=== PATIENT | female | born 1975 | race Caucasian/White ===

== ENCOUNTER 2020-08-20 15:32 | Outpatient (REF) | payer OTHER, SELFPAY ==
[2020-08-20 16:14] LABS: COVID-19 Test Negative (Negative)
== END 2020-08-20 15:33 | disposition home or self-care (01) ==
LOC: HO.LAB 15:32
PROVIDERS: Visit Provider Internal Medicine
DX: Z20.828 Contact with and (suspected) exposure to other viral communicable diseases (principal)
CPT/HCPCS: 87635; C9803

== ENCOUNTER 2020-11-10 11:56 | Emergency (ER) | payer OTHER, SELFPAY ==
--- NOTE | 2020-11-10 12:20 | XR_ITS ---
EXAMINATION: XR CHEST CLINICAL INFORMATION: Cough and fever COMPARISON: None TECHNIQUE: Frontal view of the chest was obtained. FINDINGS: No significant abnormality is noted involving the heart, lungs, mediastinum, bony thorax or soft tissues. XR/XR chest 1V IMPRESSION: Unremarkable chest examination.
[2020-11-10 12:44] VITALS: BP 125/93; PULSE 93; RESP 20; TEMP 37; O2SAT 98; BMI 29.0
--- NOTE | 2020-11-10 14:14 | ED.URI ---
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 MD elicited complaint: cough and nasal congestion Description of mucous: clear Treatments prior to arrival: none Related Data Allergies Allergy/AdvReac Type Severity Reaction Status Date / Time No Known Allergies Allergy Verified 11/10/20 12:20 Review of Systems Review of Systems: Constitutional: No Weight loss, No Fever, No Chills, No Night Sweats, No Fatigue, No Malaise ENT/Mouth: No Hearing loss, No Ear Pain, + Nasal Congestion, No Sinus Pain, No Hoarseness, No sore throat, + Rhinorrhea, No Swallowing Difficulty Eyes: No Eye Pain, No Swelling, No Redness, No Foreign Body, No Discharge, No Vision Changes Cardiovascular: No Chest Pain, No SOB, No Dyspnea on Exertion, No Orthopnea, No Edema, No Palpitations Respiratory: No Cough, No Sputum, No Wheezing, No Smoke Exposure, No Dyspnea Gastrointestinal: No Nausea, No Vomiting, No Diarrhea, No Constipation, No abdominal Pain, No Hematochezia, No Melena Genitourinary: Negative Musculoskeletal: No joint pain, No Myalgias, No Joint Swelling Skin: No Skin Lesions, No rash Neuro: No Weakness, No Numbness, No Paresthesias, No Loss of Consciousness, No Dizziness, No Headache Psych: Negative Heme/Lymph: No Bruising, No Bleeding,No Lymphadenopathy Endocrine: No Polyuria, No Polydipsia, No Temperature Intolerance Yes all other systems are reviewed and are negative [facility] Social History Social History Advance Directives: No Advance Directives Information Provided: No Physical Exam Vital Signs: Vital Signs: Last Vital Signs Temp 98.6 F 11/10/20 12:44 Pulse 93 11/10/20 12:44 Resp 20 11/10/20 12:44 BP 125/93 H 11/10/20 12:44 Pulse Ox 98 11/10/20 12:44 Body Mass Index 29.0 Reviewed Const: General: cooperative and healthy appearing Nutritional Appearance: average body habitus Orientation/consciousness: patient oriented x3 HENMT: Head: Yes normal to inspection Ears: hearing grossly normal bilaterally Eyes: General: appearance normal, both eyes and all related structures Visual Alvarez: normal visual alvarez by confrontation Resp: Effort & Inspection: normal respiratory effort Auscultation: clear to auscultation bilaterally Cardio: Jugular venous distension: no JVD Rhythm: regular rhythm Heart sounds: S1 normal heart sound present and S2 normal heart sound present GI: Inspection: Yes normal to inspection Percussion: Yes normal to percussion Auscultation: normal bowel sounds : General: Yes no CVA tenderness Back/Spine/Pelvis: Back: no CVA tenderness Skin: General skin exam: no rashes or lesions noted Neuro: General: patient oriented x3 Extrem: General: Yes normal to inspection MDM - URI/Sore Throat Lab Data Labs: Lab Results 11/10/20 Range/Units 12:52 Coronavirus (PCR) POSITIVE A (Negative) Influenza Type A (PCR) NEGATIVE (Negative) Influenza Type B (PCR) NEGATIVE (Negative) RSV RNA Qual (PCR) NEGATIVE (Negative) Discharge Plan Discharge Clinical Impression: Upper respiratory infection, COVID-19 Patient Disposition: Home, Self-Care Instructions: COVID-19 (Coronavirus Disease 2019) (ED) Additional Instructions: Self-quarantine Isolation Social distancing Supportive care discussed Follow-up with employee health center for full guidance on return to work policy Return if any concerns or worsening symptoms otherwise follow-up as instructed Thank you Referrals: [facility] [Provider Group] - 2 days
[2020-11-10 14:35] LABS: Influenza A PCR NEGATIVE (Negative); Influenza B PCR NEGATIVE (Negative); Resp Syncy Virus RNA Qual PCR NEGATIVE (Negative)
[2020-11-10 14:36] LABS: SARS COV2 PCR INHOUSE POSITIVE (Negative)
[2020-11-10 15:33] VITALS: BP 136/99; PULSE 109; RESP 20; TEMP 37.2; O2SAT 96
== END 2020-11-10 15:35 | disposition home or self-care (01) ==
PROVIDERS: Nurse Practitioner Primary Care; Emergency Provider Emergency Medicine; PCP Family Medicine
DX: U07.1 COVID-19 (principal)
CPT/HCPCS: 0241U; 36415; 71045; 99283

== ENCOUNTER 2022-09-25 09:31 | Outpatient (REF) | payer OTHER, SELFPAY ==
--- NOTE | ~2022-09-25 | MM_ITS ---
EXAMINATION: MM SCREENING DIGITAL BREAST TOMOSYNTHESIS, BILATERAL CLINICAL INFORMATION: Screening. Asymptomatic. The lifetime risk of breast cancer based on the Tyrer-Cuzick Model is 20.8%. COMPARISON: Mammography: October 01, 2020 and September 28, 2018 TECHNIQUE: Digital breast tomosynthesis is performed in both the craniocaudal and mediolateral oblique views along with computer-aided detection (CAD). Synthesized 2D images are generated from the tomosynthesis. FINDINGS: There are scattered areas of fibroglandular density (ACR BI-RADS breast composition Category b). There are no significant masses, abnormal calcifications, or other abnormalities. MM/MM tomosynthesis screening BI IMPRESSION: No significant changes ASSESSMENT: BI-RADS 1: Negative RECOMMENDATION: Routine annual mammography screening. This patient's information was entered into a reminder system with a target due date for their next mammogram.
== END 2022-09-25 09:32 | disposition home or self-care (01) ==
LOC: HO.MAMMO 09:31
PROVIDERS: PCP Family Medicine; Visit Provider Family Medicine
DX: Z12.31 Encounter for screening mammogram for malignant neoplasm of breast (principal)
CPT/HCPCS: 77063; 77067

== ENCOUNTER → 2022-12-03 08:24 | Outpatient (BNVA) | payer OTHER, SELFPAY | PROVIDERS: PCP Family Medicine; Visit Provider Student in an Organized Health Care Education/Training Program | DX: Z13.89 Encounter for screening for other disorder (principal) ==

== ENCOUNTER 2022-12-03 09:56 | Outpatient (REF) | payer OTHER, SELFPAY ==
[2022-12-03 10:18] LABS: MANUAL DIFF FLAG NO
[2022-12-03 10:53] LABS: Basophils Percent Auto 0.4 % (0-2); Eosinophils Percent Auto 0.4 % (0-4); Hematocrit 47.3 % (37.0-47.0); Hemoglobin 15.6 g/dl (12.0-16.0); Lymphocytes Absolute Auto 1.4 X10*3/uL (1.2-4.9); Lymphocytes Percent Auto 28.3 % (20-40); Mean Corpuscular Hemoglobin 29.2 pg (27.0-33.0); Mean Corpuscular Volume 88.6 fL (80.0-98.0); Mean Platelet Volume 9.6 fL (9.4-12.3); Monocytes Absolute Auto 0.2 X10*3/uL (0.1-1.2); Monocytes Percent Auto 4.1 % (2-11); Neutrophils Absolute Auto 3.4 x10*3/uL (2.0-8.3); Neutrophils Percent Auto 66.8 % (45-73); Platelet Count 317 X10*3/uL (160-400); Red Blood Count 5.34 X10*6/uL (4.20-5.50); Red Cell Distribution Width 12.4 % (11.0-16.0); White Blood Count 5.1 X10*3/uL (4.8-10.8)
[2022-12-03 10:54] LABS: Appearance Urine Cloudy; Color Urine Yellow; Glucose Urine UA Negative (Negative); Leukocyte Esterase Urine Trace (Negative); Nitrite Urine Negative (Negative); Specific Gravity - Urine 1.025 (1.005-1.025); UMIC TRIGGER UA YES; Urine Blood Negative (Negative); Urine Ketones Negative (Negative); Urine Protein Negative (Neg-Trace)
[2022-12-03 10:56] LABS: Bacteria Urine 2+ (None Seen); Hyaline Casts Urine 0-2 /LPF (0-2); RBC Urine 0-2 /HPF (0-2); Squamous Epithelial Cell Urine >20 /HPF (0-2); WBC Urine 0-5 /HPF (0-5)
[2022-12-03 11:35] LABS: Erythrocyte Sedimentation Rate 3 MM/HR (0-20)
[2022-12-03 11:51] LABS: Alanine Aminotransferase 15 U/L (0-31); Albumin Level 4.6 g/dL (3.5-5.0); Alkaline Phosphatase 51 U/L (39-117); Anion Gap 12 (12-20); Aspartate Amino Transferase 13 U/L (5-31); Bilirubin Total 0.6 mg/dL (0.0-1.0); Blood Urea Nitrogen 15 mg/dL (9-16); C Reactive Protein < 0.10 mg/dL (< or = 0.50); Calcium 9.6 mg/dL (8.4-10.2); Carbon Dioxide 27 mmol/L (22-29); Chloride 108 mmol/L (96-108); Estimated Glomerular Filt Rate > 60; Glucose Random 88 mg/dL (60-115); Potassium 4.4 mmol/L (3.3-5.1); Sodium 143 mmol/L (135-145); Total Protein 7.5 g/dL (6.5-8.0)
[2022-12-03 11:57] LABS: Protein/Creatinine Ratio, Ur 0.05 (<0.2); Total Protein Urine Random 12 mg/dL (<12)
[2022-12-05 13:08] LABS: Anti DNA DS Antibody <1 IU/mL; Antibody to SS-A Antigen <1.0 NEG AI (<1.0 NEG); Antibody to SS-B Antigen <1.0 NEG AI (<1.0 NEG); SM/Ribonucleoprotein Ab <1.0 NEG AI (<1.0 NEG); Smith Protein <1.0 NEG AI (<1.0 NEG)
[2022-12-05 22:04] LABS: Prot Elec - Albumin 4.7 g/dL (3.8-4.8); Prot Elec - Alpha1 0.3 g/dL (0.2-0.3); Prot Elec - Alpha2 0.9 g/dL (0.5-0.9); Prot Elec - Beta 1 0.4 g/dL (0.4-0.6); Prot Elec - Beta 2 0.3 g/dL (0.2-0.5); Prot Elec - Total Protein 7.5 g/dL (6.1-8.1)
[2022-12-06 06:34] LABS: Complement C3 137 mg/dL (83-193)
[2022-12-06 22:34] LABS: PTT (LAC) Screen 29 sec (<=40)
[2022-12-08 02:48] LABS: Angiotensin Converting Enzyme 17 U/L (9-67)
[2022-12-08 09:19] LABS: IgA 208 mg/dL (47-310); IgG 969 mg/dL (600-1640); IgM 168 mg/dL (50-300)
[2022-12-08 18:49] LABS: Lysozyme, Serum 5.6 mcg/mL (5.0-11.0)
[2022-12-09 13:58] LABS: DNAds, Crithidia Antibody Negative (Negative)
== END 2022-12-03 09:57 | disposition home or self-care (01) ==
LOC: HO.10HDL 09:56
PROVIDERS: Visit Provider Student in an Organized Health Care Education/Training Program
DX: M32.9 Systemic lupus erythematosus, unspecified (principal); D86.9 Sarcoidosis, unspecified; R76.0 Raised antibody titer
CPT/HCPCS: 36415; 80053; 81001; 82164; 82784; 83516; 84156; 84165; 85025; 85549; 85597; 85613; 85652; 85730; 86140; 86160; 86225; 86235; 86255; 86334

== ENCOUNTER → 2023-01-21 08:10 | Outpatient (BNVA) | payer OTHER, SELFPAY | PROVIDERS: PCP Family Medicine; Visit Provider Student in an Organized Health Care Education/Training Program | DX: Z13.89 Encounter for screening for other disorder (principal) ==

== ENCOUNTER 2023-02-17 10:30 | Outpatient (RCR) | payer OTHER, SELFPAY ==
--- NOTE | 2023-03-27 14:34 | MHC.OT.DC ---
[address] [phone] F: [phone] Occupational Therapy Discharge Note Patient Name: Smita Pham Provider: Steve Torres Diagnosis: Osteoarthritis bilateral hands Date of Surgery: Date of Evaluation: 02/10/23 Date of Discharge: 03/27/23 Treatments to Date: 3 Cancellations to Date: 1 No Shows to Date: 1 Discharge Status: Patient Elected to Stop Discharge Summary: Con't high pain. Weak with index abd . Good tolerance submax isometric ex Electronically Signed By: Ny Costa OT CHT CLT Reviewed/agree with student documentation: Therapist: Please Sign and return to therapist, thank you for your referral.
== END 2023-03-27 14:35 | disposition home or self-care (01) ==
LOC: HO.OT 10:30
PROVIDERS: PCP Family Medicine; Visit Provider Student in an Organized Health Care Education/Training Program
DX: M19.041 Primary osteoarthritis, right hand (principal); M19.042 Primary osteoarthritis, left hand
CPT/HCPCS: 29125; 97035; 97110; 97166; 97760

== ENCOUNTER 2023-10-13 10:39 | Outpatient (REF) | payer OTHER, SELFPAY ==
--- NOTE | ~2023-10-13 | MM_ITS ---
EXAMINATION: MM SCREENING DIGITAL BREAST TOMOSYNTHESIS, BILATERAL CLINICAL INFORMATION: Screening. Asymptomatic. COMPARISON: Mammography: 09/25/2022, 10/01/2020, 09/28/2018. TECHNIQUE: Digital breast tomosynthesis is performed in both the craniocaudal and mediolateral oblique views along with computer-aided detection (CAD). Synthesized 2D images are generated from the tomosynthesis. FINDINGS: There are scattered areas of fibroglandular density (ACR BI-RADS breast composition Category b). There are no suspicious masses, suspicious grouped calcifications, or areas of architectural distortion in either breast. The parenchymal pattern is stable from prior exams. No skin or axillary abnormalities. MM/MM tomosynthesis screening BI IMPRESSION: No mammographic evidence of malignancy. ASSESSMENT: BI-RADS BI-RADS 1 - Negative RECOMMENDATION: Routine annual mammography screening. 1 year F/U This examination should not preclude the clinical evaluation of a suspicious palpable abnormality. This patient's information was entered into a reminder system with a target due date for their next mammogram.
== END 2023-10-13 10:40 | disposition home or self-care (01) ==
LOC: HO.MAMMO 10:39
PROVIDERS: PCP Family Medicine; Visit Provider Family Medicine
DX: Z12.31 Encounter for screening mammogram for malignant neoplasm of breast (principal)
CPT/HCPCS: 77063; 77067

== ENCOUNTER → 2023-10-13 10:45 | Outpatient (BNV) | payer OTHER, SELFPAY | PROVIDERS: PCP Family Medicine; Visit Provider Radiology Diagnostic Radiology | DX: Z12.31 Encounter for screening mammogram for malignant neoplasm of breast (principal) | CPT/HCPCS: 77063; 77067 ==

== ENCOUNTER 2024-11-04 08:46 | Outpatient (REF) | payer OTHER, SELFPAY ==
--- OUTSIDE RECORDS SUMMARY | 2024-11-04 09:04 | XMS_ITS | Data Portability ---
Author Organization [facility], , [facility] Address [address] [place] [address] Care Team Providers Care Deli Worker Name Role Phone JANE LEAVITT Primary Care Provide r ZEINAB WALSH Operation Shift Supervisor SKYLER CASTILLO Hematology/Oncology Assessment No assessment recorded. Plan of Treatment Reminders Order Date Submit Date Provider Last Modified By Organization Details Last Modified Time Details Appointments None record ed. Lab lipid panel, serum 2022 024 [facility], [address] [place] [address], [id number], 4 16:20:27 lipid panel, serum 2023 [facility] [address] [place] [address], [id number], 4 14:24:59 Referral None record ed. Procedures None record ed. Surgeries None record ed. Imaging MAMMO, screen ing, tomosy nthesi s, bilate ral - 2nd look consul t/Diag Mammo/ US Breast /Guide d Asp/Br east Bx as clinic oniel nava. 2022 023 [facility] (Imaging), [address], [place], [address], 4 11:59:54 MAMMO, screen ing, tomosy nthesi s, bilate ral - By jewel morejon this order, I approv e and author jayleen the reflex orderi ng of additi onal breast imagin g based on the radiol ogist' s clinic al judgme nt. [email or web address] [place] [address] ([facility]), [address] [place] [address], [address], 4 14:08:55 Medication Orders mupiro ariadne 2 % topica l ointme nt 2022 023 [facility] [address] [place], [address], 3 09:31:44 Incass ia 0.35 mg tablet 2022 023 [facility] [address] [place], [address], 3 09:32:59 benzon atate 200 mg capsul e 2023 024 [facility] [address] [place], [address], 4 08:34:40 codein e 10 mg-gua ifenes in 100 mg/5 mL oral liquid 2023 024 [facility] [address] [place], [address], 4 08:34:44 Incass ia 0.35 mg tablet 2023 024 [facility] [address] [place], [address], 4 09:06:57 Patient TargetsNo targets recorded. Patient Instructions Encounter Date Encounter Id Patient Instructions Last Modified By Organization Details Last Modified Time 09/10/2023 [id number] well visit, women 50 to 65: care instructions sandra Not available 09/10/2023 09:31:16 After a discussion of treatment and medication options, which included consideration of the best practices in medicine, a medical plan was provided. The patient's opinions and concerns were included in this treatment plan and goal. * Maintain 1200 mg of calcium from food sources daily, * Take vitamin D 2835-3228 units daily to help absorption of calcium into your bones * Use sunblock consistently * Review the website: [email or web address].KonTEM to get more information on the Mediterranean diet - a heart healthy eating plan * Immunizations up to date; COVID vaccine booster recommended. Please get your Shingrix at the pharmacy. * The current guidelines from the [place] [employer] is moderate aerobic physical activity about 30 minutes for 5 days of the week. Walking at a moderately fast pace, as tolerated. Try to build muscle mass. This will help maintain bone strength and support your joints. * Pap smear is due 2024 * Normal cytology and negative HPV in 2019 * Mammogram guidelines discussed, no family history or personal history of abnormal mammograms, prefers yearly - [facility] scheduled Oct 2023; normal in 2021 * Colonoscopy is due 2031 Normal in year 2021 * Health care proxy discussed and no changes. * Wellness Visit in 1 year * See your dentist at least twice a year. * Get your vision checked at least once every 2 years. * Discussed labs - 2021 LDL improving, will recheck in 2023 prior to Wellness. Goal is less than 130. Continue mediterranean diet and avoid saturated fat. * saw rheumatology in January 2023 - reassuring, no follow up needed. * trial of mupirocin for rash on nose and will let me know how it is in 1-2 weeks. * vertigo, rare about 1-3 times a year and resolved with meclizine sandra Not available 09/12/2023 10:09:22 10/19/2023 [id number] After a discussion of treatment and medication options, which included consideration of the best practices in medicine, a medical plan was provided. The patient's opinions and concerns were included in this treatment plan and goal. New medication was discussed with patient including risks, benefits ,possible and expected side effects. Patient understands and is willing to begin medication as prescribed. * try saline gargles, saline nasal spray or neti pot; acetaminophen as needed for fever or pain, increase fluids, rest, avoid sick contacts, frequent hand washing. * trial of prilosec OTC also, a silent heartburn can cause a dry persistent cough. * has nubia ventura to use as needed and robitussin with codeine at bedtime. * call in the interim if with worsening symptoms or intolerance to medication. sandra Not available 10/20/2023 14:54:39 Reason for Referral None Reported. Results Created Date Observation Date Name Description Value Unit Range Abnormal Flag Note LastModifiedBy Organization Detail LastModifiedTime 07/17/2007/21/2023 BACTE RIAL VAGIN OSIS/ VAGIN ITIS bv, RNA BV NEG negati ve normal The aptim a BV assay is utili zed for the detec tion of ribos omal RNA from bacte robin assoi cated with bacte rial vagin osis( BV), inclu ding Lacto bacil lis (L. gasse ri, L. crisp stus, and L. jense cyndi), Gardn erell a vagin isaias, and Atopo bium vagin ae. The assay repor ts a quali tativ e resul t for BV and does not repor t resul ts for indiv idual organ isms. Not Available [address], [address], 07/21/2023 13:52:57 07/17/2007/21/2023 BACTE RIAL VAGIN OSIS/ VAGIN ITIS silvia species group (C. albicans, C. tropicalis, C. parapsilosis ), RNA C. SPP POS negati ve abnormal Not Available [address], [address], 07/21/2023 13:52:57 07/17/2007/21/2023 BACTE RIAL VAGIN OSIS/ VAGIN ITIS silvia glabrata, RNA C. GLA NEG negati ve normal Not Available [address], [address], 07/21/2023 13:52:57 07/17/2007/21/2023 BACTE RIAL VAGIN OSIS/ VAGIN ITIS trichomonas vaginalis, RNA TRICH NEG negati ve normal Not Available [address], [address], 07/21/2023 13:52:57 09/06/20 24 09/07/2024 LIPID PANEL cholesterol 236 mg/dL <200 mg/dl Dre able 200-2 39 mg/dl Borde rline High >240 mg/dl High Not Available [address], [address], 09/07/2024 16:20:27 09/06/20 24 09/07/2024 LIPID PANEL triglyceride s 78 mg/dL <150 mg/dL Katia l 150-1 99 mg/dL Borde rline High 200-4 99 mg/dL High >500 mg/dL Very High Not Available [address], [address], 09/07/2024 16:20:27 09/06/20 24 09/07/2024 LIPID PANEL direct HDL 79 mg/dL <40 mg/dl - Major Risk for CHD >60 mg/dl - Negat nia Risk for CHD Not Available [address], [address], 09/07/2024 16:20:27 09/06/20 24 09/07/2024 GLUCO SE glucose 87 mg/dL 70-100 Not Available [address], [address], 09/07/2024 16:20:28 09/06/20 24 09/07/2024 LDL - CALCU LATED LDL - calculated 141 RISK CATEG ORY LDL GOAL _ CHD or CHD Risk Equiv alent s <100 mg/dl (10-y ear risk >20%) 2+ Risk Facto rs <130 mg/dl (10-y ear risk <= 20%) 0-1 Risk Facto r??? <160 mg/dl ??? Almos t all peopl e with 0-1 risk facto r have a 10 year risk <10%, thus 10 year risk asses ment in peopl e with 0-1 risk facto r is not neces andre. Not Available [address], [address], 09/07/2024 16:20:28 11/03/19 24 10/13/2023 MAMMO , kaleb elizabeth No observ ation record ed. [facility] [address] [place], [address], 11/03/2023 10:35:40 Result Notes None recorded. Problems Name Problem SNOMED Code Status Onset Date Resolution Date Notes Provider Name and Address Organization Details Recorded Time Abdominal pain 69533023 Active Jane Isaac MD [address] [place] [address], [phone] , [facility] 5 13:40:22 COVID-19 101481132 Active 202011/10/2020 [facility] Jane Isaac MD [address] [place] [address], [phone] , [facility] 1 09:28:23 Impacted cerumen of bilateral ears 57335222658 [address] Active 2020 Kym Ferrer MA [facility] 1 11:03:11 Headache 80212355 Active 2007 Not Available [facility] 3 03:13:40 Mixed hyperlipi demia 102060856 Active 200512/12/14 NO STANDING ORDER FOR LIPID PER KL--lz Enid Fletcher [facility] 5 11:27:18 Astigmati sm 79303330 Active 2007 Not Available [facility] 3 03:13:40 Low back pain 202436694 Active 2005 Not Available [facility] 3 03:13:40 Problem Notes None recorded. Procedures Surgical History Date Name Laterality Status Provider Name and Address Organization Details Recorded Time 2023 Refraction completed Tresa Jacobsen OD [address] [place] [address], [phone], [facility] 02/08/2024 11:11:29 2021 Lilliana - Colonoscopy completed Jenaro Tijerina MD [address] [place], [address], [facility] 03/27/2022 12:28:13 2021 Colonoscopy completed Jane Isaac MD [address] [place], [address], [facility] 04/06/2022 16:06:53 2021 Refraction completed Tresa Jacobsen, OD [address] [place], [address], [facility] 12/26/2021 10:08:02 2020 Cerumen Removal - Irrigation/Lavage completed Kym Ferrer [facility] 09/02/2021 11:29:41 2019 prevention-cardiovascu lar risk reduction counseling [facility] 08/31/2020 07:35:44 2019 prevention-annual alcohol misuse screening [facility] 08/31/2020 07:35:44 2019 Refraction completed Tresa Jacobsen, OD [address] [place], [address], [facility] 12/08/2019 15:24:57 2018 Refraction completed Inez Garcia [facility] 12/16/2018 10:30:38 2016 POC Flu Testing completed Yelena Alba [facility] 11/17/2016 12:04:27 2015 Refraction completed Inez Garcia [facility] 08/19/2016 10:54:02 2014 Esophagoduodenoscopy completed Jane Isaac MD [address] [place], [address], [facility] 12/14/2014 20:30:10 Imaging Results Imaging Date Name Status LastModified by Organiz ation Details LastModified Time 10/13/2023 MAMMO, screening completed [email or web address] [facility] [address] [place], [address], 11/03/2023 10:35:40 Procedure Notes None recorded. Medical Equipment None Reported. Allergies Allergen ID Allergen Name Allergen Category Reaction Reaction Severity Criticality Documentation Date Start Date Code Code System Note Provider Name and Address Organization Details Recorded Time Naprosyn medicatio n nausea vomiting Not available Not available Not available 01/10/2010 2 RxNorm Not Available [facility] 1 06:05:20 Medications Name Sig Start Date Stop Date Status Note LastModified by Organization Details LastModified Time amoxicill in 500 mg capsule TAKE ONE CAPSULE BY MOUTH 4 TIMES A DAY UNTIL FINISHED 09/10 completed Finished course 08/31/20 20 LZ Not Available Not Available Not Available fluconazo le 150 mg tablet Take 1 tablet every day by oral route for 1 day. 09/10 completed Not Available Not Available Not Available benzonata te 200 mg capsule TAKE 1 CAPSULE BY MOUTH THREE TIMES A DAY FOR 10 DAYS 09/13 completed Not Available Not Available Not Available hydrocodo ne 5 mg-acetam inophen 325 mg tablet Take 1 tablet every 8 hours by oral route as needed for 7 days. 02/06 completed Not Available Not Available Not Available clindamyc in HCl 150 mg capsule TAKE 1 TABLET EVERY 6 HOURS UNTIL TABLETS ARE GONE active Not Available Not Available No t Available meclizine 12.5 mg tablet 1-2 tabs po as needed TID 2023 active Not Available Not Available Not Avai lable metronida zole 500 mg tablet TAKE 1 TABLET BY MOUTH TWICE A DAY FOR 7 DAYS 09/02 completed Not Available Not Available Not Available acetamino phen 300 mg-codein e 30 mg tablet TAKE 1 TABLET BY MOUTH EVERY 6 HOURS NEEDED FOR PAIN active Not Available Not Available No t Available ciproflox acin 250 mg tablet Take 1 tablet every 12 hours by oral route for 7 days. 06/29 completed Not Available Not Available Not Available tramadol 50 mg tablet 02/06 completed Not Available Not Available Not Available terconazo le 80 mg vaginal supposito ry INSERT 1 SUPPOSIT ORY VAGINALL Y EVERY DAY FOR 3 DAYS 09/10 completed Not Available Not Available Not Available methocarb elisabeth 750 mg tablet 02/06 completed Not Available Not Available Not Available antipyrin e-benzoca ine 5.4 %-1.4 % ear drops PUT ENOUGH DROPS TO FILL EAR CANAL INTO AFFECTED EAR(S) 3 TIMES A DAY active Not Available Not Available No t Available benzonata te 100 mg capsule Take 1 capsule 3 times a day by oral route for 5 days. 11/27 completed not taking ds Not Available Not Available Not Available oseltamiv ir 75 mg capsule TAKE ONE CAPSULE BY MOUTH TWICE A DAY FOR 5 DAYS 01/05 completed Not Available Not Available Not Available hyoscyami ne 0.125 mg sublingua l tablet DISSOLVE 1 TABLET BY MOUTH 3 TIMES A DAY NEEDED FOR AB PAIN active Not Available Not Available No t Available polymyxin B sulfate 10,000 unit-trim ethoprim 1 mg/mL eye drops PLACE 1 DROP INTO THE AFFECTED EYE(S) 4 TIMES A DAY FOR 7 DAYS THEN STOP 08/04 completed Not Available Not Available Not Available omeprazol e 20 mg capsule,d elayed release Take 1 capsule every day by oral route as needed for 90 days. active Not Available Not Available No t Available codeine 10 mg-guaife nesin 100 mg/5 mL oral liquid TAKE 10 ML BY MOUTH DAILY AT BEDTIME NEEDED 09/13 completed Not Available Not Available Not Available mupirocin 2 % topical ointment APPLY BY TOPICAL ROUTE. TWICE A DAY ON AFFECTED AREA. active Not Available Not Available No t Available methylpre dnisolone 4 mg tablets in a dose pack 01/13 completed Not Available Not Available Not Available fluticaso ne propionat e 50 mcg/actua tion nasal spray,paul pension SPRAY 1 SPRAY INTO EACH NOSTRIL EVERY DAY 09/02 completed Not Available Not Available Not Available naproxen 500 mg tablet 2007 active Take 1.00 tabs twice daily as needed Not Available Not Available Not Available Bactroban Nasal 2 % ointment Take by nasal route. on affected area twice a day on nose as needed. 2012 active Not Available Not Available Not Avai lable amoxicill in 875 mg-potass ium clavulana te 125 mg tablet TAKE 1 TABLET BY MOUTH EVERY 12 HOURS FOR 1 WEEK 09/10 completed Not Available Not Available Not Available Vitamin D3 25 mcg (1,000 unit) capsule Take by oral route. active Not Available Not Available No t Available Vitamin C 09/02 completed Not Available Not Available Not Available Probiotic take1.00 tab daily active does not take regularl y Not Available Not Available Not Available Multi Vitamin take 1.00 tab daily active Not Available Not Available No t Available Vitamin B12 active 1000 mg Not Available Not Available Not Available Larissia 0.1 mg-20 mcg tablet TAKE 1 TABLET BY MOUTH EVERY DAY active Not Available Not Available No t Available Incassia 0.35 mg tablet TAKE 1 TABLET BY MOUTH EVERY DAY active Not Available Not Available No t Available Vitals Date Recorded Body height Provider Name an d Address Organization Details Last Updated DateTime 07/13/2023 167.64 cm [facility] 14:01:55 Date Recorded Oxygen saturation Oxygen saturation in Arterial blood by Pulse oximetry Provider Name and Address Organization Details Last Updated DateTime 07/13/2023 99 % 99 % [facility]13[facility]2023 14:02:16 Date Recorded Heart rate Provider Name an d Address Organization Details Last Updated DateTime 07/13/2023 96 /[facility] 14:02:36 Date Recorded Body mass index (BMI) Body weight Provider Name and Address Organization Details Last Updated DateTime 07/13/2023 24.7 kg/m2 54008.63 g [facility]2023 14:04:04 Date Recorded Body temperature Provider Name a nd Address Organization Details Last Updated DateTime 07/13/2023 97.8 [degF] [facility]13[facility]2023 14:04:59 Date Recorded Body height Provider Name an d Address Organization Details Last Updated DateTime 09/10/2023 167.64 cm Sabina Stout MA [facility] 09/10/2023 09:04:04 Date Recorded Body mass index (BMI) Body weight Provider Name and Address Organization Details Last Updated DateTime 09/10/2023 25.7 kg/m2 42619.89 g Sabina Stosz, [facility] 09/10/2023 09:05:34 Date Recorded Heart rate Provider Name an d Address Organization Details Last Updated DateTime 09/10/2023 72 /min Sabina Stout [facility] 09/10/2023 09:06:06 Date Recorded Body height Provider Name an d Address Organization Details Last Updated DateTime 10/19/[address] [facility] 10/19/2023 13:31:20 Date Recorded Body temperature Provider Name a nd Address Organization Details Last Updated DateTime 10/19/2023 98.2 [degF] Dominique Person [facility] 10/19/2023 13:35:05 Date Recorded Oxygen saturation Oxygen saturation in Arterial blood by Pulse oximetry Provider Name and Address Organization Details Last Updated DateTime 10/19/2023 99 % 99 % Dominique Person [facility] 10/19/2023 13:36:19 Date Recorded Heart rate Provider Name an d Address Organization Details Last Updated DateTime 10/19/2023 105 /min Dominique Person [facility] 10/19/2023 13:36:45 Date Recorded Body height Provider Name an d Address Organization Details Last Updated DateTime 09/13/2024 167.64 cm Sabina Stout [facility] 09/13/2024 08:35:20 Date Recorded Body mass index (BMI) Body weight Provider Name and Address Organization Details Last Updated DateTime 09/13/2024 27 kg/m2 01117.93 g Sabina Stout [facility] 09/13/2024 08:36:06 Date Recorded Heart rate Provider Name an d Address Organization Details Last Updated DateTime 09/13/2024 72 /min Sabina Stout [facility] 09/13/2024 08:37:35 Date Recorded Systolic blood pressure Diastolic blood pressure Provider Name and Address Organization Details Last Updated DateTime 07/13/2023 104 mm[Hg] 74 mm[Hg] Alicia Renee [facility] 07/13/2023 14:04:14 Date Recorded Systolic blood pressure Diastolic blood pressure Provider Name and Address Organization Details Last Updated DateTime 09/10/2023 112 mm[Hg] 64 mm[Hg] Sabina Stout MA [facility] 09/10/2023 09:05:41 Date Recorded Systolic blood pressure Diastolic blood pressure Provider Name and Address Organization Details Last Updated DateTime 10/19/2023 124 mm[Hg] 72 mm[Hg] Dominique Person CMA [facility] 10/19/2023 13:36:23 Date Recorded Systolic blood pressure Diastolic blood pressure Provider Name and Address Organization Details Last Updated DateTime 09/13/2024 110 mm[Hg] 78 mm[Hg] Sabina Stout MA [facility] 09/13/2024 08:37:04 Social History Question Answer Notes LastModified by Organizat ion Details LastModified Time Tobacco Smoking Status Never Smoker Not Available [facility] 08/28/2011 04:54:19 What Is Your Level Of Alcohol Consumption? Occasional Maybe 2 Glasses Of Wine Per Month [email or web address] Information not available 08/30/2019 Do You Wear A Helmet When Biking? No Does Not Ride A Bike Information not available 08/13/2017 What Is Your Level Of Caffeine Consumption? Occasional 1 Cup Coffee Daily Information not available 07/26/2015 How Much Tobacco Do You Chew? None Information not available 08/13/2017 What Type Of Diet Are You Following? REGULAR Trying To Eat Healthier [email or web address] Information not available 08/30/2019 Which Illicit Or Recreational Drugs Have You Used? None Information not available 07/26/2015 Do You Or Have You Ever Used E-cigarettes Or Vape? 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 0 Information not available 07/22/2013 Are There Any Guns Present In Your Home? No Information not available 07/26/2015 Live Alone Or With Others? With Others Mom Information not available 08/13/2017 Does The Patient Have Difficulty Speaking [place]? No [email or web address] Information not available 12/19/2013 Does The Patient Have Difficulty Reading [place]? No Information not available 07/26/2015 Patient Has Health Care Proxy Signed And In Chart Yes [email or web address] Information not available 08/31/2019 Marital Status Single Ken BF - 2013 Information not available 08/30/2019 Mosquito Repellent Used Routinely No Information not available 07/26/2015 What Was The Date Of Your Most Recent Tobacco Screening? 09/13/2024 Information not available 09/13/2024 How Many Children Do You Have? 0 Information not available 08/28/2011 Are There Any Occupational Health Risks Where You Work? Repetitive Motions Information not available 08/30/2019 Seat Belts Used Routinely Yes Information not available 07/26/2015 Are You Sexually Active? Yes 2013 Partner - Ken [email or web address] Information not available 09/13/2024 Smoke Alarm In Home Yes Information not available 07/26/2015 Do You Or Have You Ever Used Smokeless Tobacco? Never Used Smokeless Tobacco [email or web address] Information not available 08/30/2019 How Much Tobacco Do You Smoke? No [email or web address] Information not available 08/31/2020 What Types Of Sporting Activities Do You Participate In? None Information not available 07/26/2015 General Stress Level Medium Information not available 08/30/2019 Do You Use Sunscreen Routinely? No Information not available 07/26/2015 Do You Or Have You Ever Used Any Other Forms Of Tobacco Or Nicotine? No Information not available 09/08/2022 Sex: Female Functional Status None recorded. Mental Status None recorded. Family History Relationship Description Onset Age of this Age Resolved Age Notes LastModified by Organization Details LastModified Time Father Problem hepati tis C [email or web address] illo Not available 07/26/2015 09:08:36 Father Arthritis [email or web address] illo Not available 07/03/2022 12:10:18 Mother Problem hepati tis C [email or web address] illo Not available 07/26/2015 09:08:37 Maternal Grandmother Malignant neoplastic disease unknow n (previ ously record ed as Cancer ) [email or web address] illo Not available 07/26/2015 09:08:37 Paternal Grandfather Malignant tumor of colon previo usly record ed as Cancer - Colon [email or web address] illo Not available 07/26/2015 09:08:37 Paternal Uncle Malignant tumor of colon 46 46 [email or web address] illo Not available 08/23/2018 08:52:13 Paternal Grandmother Arthritis klopezdelcast illo Not available 07/03/2022 12:10:32 Notes:only child Medical History Condition Response GERD Y Gynecological History Statement/Question Response Menses Monthly Y History of Abnormal Pap Y Current Control Method BCPs Date of LMP 07/30/2016 Frequency of Cycle (Q days) 13 Obstetrics History GPAL:G 0 P 0 0 0 0 Immunizations Vaccine Type Date Status Note Provider Nam e and Address Organization Details Recorded Time Influenza, split virus, trivalent, PF 3 completed Not Available [facility] 10/29/2019 02:18:58 Influenza, split virus, quadrivalent, PF 5 completed Not Available [facility] 10/29/2019 02:19:51 Influenza, split virus, quadrivalent, preservative 7 completed Zoraida Patel LPN [facility] 08/13/2017 09:01:04 influenza, unspecified formulation 8 completed Yelena Muro CMA [facility] 08/23/2018 08:27:17 Td (adult), 2 Lf tetanus toxoid, preservative free, adsorbed 0 completed Jovita Raya MA [facility] 09/10/2020 09:12:33 Influenza, split virus, quadrivalent, preservative 0 completed Not Available [facility] 08/17/2020 19:16:14 SARS-COV-2 (COVID-19) vaccine, UNSPECIFIED 1 completed Chandni Vázquez NP [address] [place] [address], [phone], [facility] 11/20/2020 14:52:51 COVID-19, mRNA, LNP-S, PF, 100 mcg/0.5mL dose or 50 mcg/0.25mL dose 1 completed [facility] Stout [facility] 09:44:59 COVID-19, mRNA, LNP-S, PF, 100 mcg/0.5mL dose or 50 mcg/0.25mL dose 1 completed Sabina Stosz, [place] [facility]2021 09:45:16 influenza, unspecified formulation 4 completed Sabina Stosz, [place] [facility] 09/13/2024 08:35:49 Tdap 0 completed Sabina Stosz, [place] [facility] 09/13/2024 08:35:49 Influenza, split virus, trivalent, PF 4 completed Sabina Stosz, [place] [facility] 09/13/2024 08:35:49 Influenza, split virus, quadrivalent, PF 7 completed Sabina Stosz, [place] [facility] 09/13/2024 08:35:49 Influenza, split virus, quadrivalent, PF 0 completed Sabina Stosz, [place] [facility] 09/13/2024 08:35:49 Influenza, split virus, quadrivalent, PF 9 completed [facility]ina Stos[facility], [facility] 08:35:49 Influenza, split virus, quadrivalent, PF 6 completed Sabina Stosz, [place] [facility] 09/13/2024 08:35:49 Influenza, split virus, quadrivalent, PF 3 completed Sabina Stosz, [place] [facility] 09/13/2024 08:35:49 Influenza, split virus, quadrivalent, PF 2 completed Sabina Stosz, [facility] 09/13/2024 08:35:49 Influenza, split virus, quadrivalent, PF 1 completed Sabina Stosz, [place] [facility] 09/13/[facility]24 08:35:49 Past Encounters Encounter ID Performer Location Encounter Start Date Encounter Closed Date Diagnosis/Indication Diagnosis SNOMED-CT Code Diagnosis ICD10 Code Diagnosis Note [id number] [facility], OFFICE [address] [place] [address] 03/23/2006 13:38:16 03/26/2006 14:03:37 [id number] [facility], OFFICE [address] [facility] TIEN [id number] 6 06/12/2006 10:27:02 06/12/2006 13:22:00 [id number] LAB - [address] TIEN [id number] 6 06/12/2006 15:11:37 06/12/2006 15:12:07 [id number] LAB - [facility] [address] [facility] TIEN [id number] 6 09/10/2006 10:26:40 09/10/2006 10:26:52 [id number] [facility], OFFICE [address] [facility] TIEN [id number] 6 01/17/2008 14:42:19 11/01/2008 02:02:29 [id number] Physical Therapy, [address] [place] [address] 6 01/18/2008 07:52:47 01/18/2008 15:17:04 [id number] Physical Therapy, [address] [place] [address] 6 01/26/2008 07:28:34 01/27/2008 12:18:58 [id number] Physical Therapy, [address] [place] [address] 6 02/10/2008 09:20:16 02/10/2008 16:47:43 [id number] Eye Care, [address] [place] [address] 6 07/13/2008 07:54:13 07/13/2008 10:17:54 [id number] Optical, [address] [address] 6 07/20/2008 14:45:51 07/20/2008 17:40:57 [id number] [facility]IL [facility], OFFICE [address] [place] [facility] [place] [address] 6 01/10/2010 10:52:49 01/14/2010 14:51:11 [id number] [facility], OFFICE [address] [place] [facility] [place] [address] 6 04/03/2011 10:43:31 04/03/2011 11:44:05 [id number] NEIL [facility], OFFICE [address] [place] [address] 6 10/31/2011 11:41:46 10/31/2011 12:22:15 [id number] NEIL C, OFFICE [address] [place] [address] 6 05/04/2012 14:43:41 05/04/2012 16:06:46 [id number] Alicia Víctor Meg TREJO [facility], OFFICE [address] [place] [id number] 6 07/20/2013 09:55:45 07/20/2013 10:32:51 Acute upper respiratory infection 54482388 Influenza vaccine needed [id number] [id number] EREN TREJO, OFFICE [address] [place] [address] 6 07/22/2013 10:45:57 07/22/2013 12:11:55 Adult health examination 843957384 see Risk Assessment and Lifestyle Change Counseling section above Counseling [id number] Screening for malignant neoplasm of cervix 170602339 Open wound of nose 138102483 [id number] NEIL Anuel, OFFICE [address] [place] [address] 6 12/19/2013 16:08:02 12/19/2013 16:59:24 Abdominal pain 62465391 [id number] DELFINO Mock, [facility], OFFICE [address] [place] [address] 6 01/10/2014 11:23:11 01/10/2014 12:05:01 Abdominal pain 54796742 [id number] DELFINO Mock [facility], OFFICE [address] [place] [address] 6 01/24/2014 07:54:18 01/24/2014 09:03:46 Heartburn 18735730 Muscle strain 68982451 Irregular heart beat 218938056 [id number] DELFINO Mock [facility], OFFICE [address] [place] [address]852 6 04/21/2014 12:03:05 04/21/2014 12:36:14 Bronchitis 34568488 Otalgia 70463825 [id number] NEIL Anuel, OFFICE [address] [place] [address]273 6 06/01/2014 12:01:46 06/01/2014 12:27:10 Suprapubic pain 094640354 [id number] Dottie ridley , [facility], OFFICE [address] [place] [address]237 6 07/25/2014 09:37:57 07/25/2014 10:40:17 Adult health examination 939013586 see Risk Assessment and Lifestyle Change Counseling section above Counseling 205419143 Screening for malignant neoplasm of cervix 156412941 Screening mammography 99198704 [id number] Jane Isaac MD , [facility], OFFICE [address] [place] [address] 6 07/26/2015 08:19:36 07/26/2015 09:30:20 Adult health examination 202423847 Z00.00 see Risk Assessment and Lifestyle Change Counseling section above Counseling 804107065 Z71 .9 Active or passive immunization 275974913 Z23 Heartburn 19704047 R12 Uses oral contraception 1756327 Z79.3 [id number] Chandni Vázquez NP , [facility], OFFICE [address] [place] [address] 6 01/21/2016 11:23:23 01/21/2016 12:25:42 Vaginitis and vulvovaginitis 686144519 N76.0 [id number] Tresa Jacobsen, Eye Care, [address] [address] 6 03/26/2016 13:27:56 03/26/2016 14:33:56 Acute conjunctivitis 77962609 H10.31 [id number] Jane Isaac MD , [facility], OFFICE [address] [place] [address] 6 08/04/2016 08:18:19 08/04/2016 09:09:55 Adult health examination 197340188 Z00.00 see Risk Assessment and Lifestyle Change Counseling section above Counseling 698003795 Z71 .9 Screening for malignant neoplasm of cervix 282661116 Z12.4 Body mass index 25-29 - overweight 385853549 Z68.29 Screening mammography 24 002381 Z12.31 [id number] Tresa Jacobsen, OD Eye Care, [facility] [address] [place] [address] 08/19/2016 10:21:25 08/19/2016 11:48:59 Regular astigmatism 49952668 H52.047 [id number] Gianna Piedra, Ms, Rdn, Ldn, CDE Nutrition -[address] [address] 6 09/15/2016 14:06:34 09/15/2016 15:13:44 Overweight 832866125 E66.3 [id number] Dennise Bergman PA-C , [facility], OFFICE [address] [place] [address] 6 11/17/2016 11:46:00 11/17/2016 12:51:35 Cough 11696343 R05 - Chest xray normal Influenza caused by Influenza A virus 920845211 J09.X2 - Work note given for the rest of the week- You may have a fever for a few more days- Return to office if develop productive cough with worsening shortness of breath- You are contagious . Any family members who become sick should be tested [id number] Jane Isaac MD , [facility], OFFICE [address] [place] [address] 6 01/05/2017 10:05:05 01/05/2017 11:07:59 Low back strain 253817441 S39.012A [id number] Jane Isaac MD , [facility], OFFICE [address] [place] [address] 6 01/13/2017 07:53:31 01/14/2017 09:37:31 Low back strain 622347176 S39.012A [id number] Jane Isaac MD , [facility], OFFICE [address] [place] [address] 6[address] 6 02/06/2017 08:57:37 02/06/2017 16:56:08 Strain of neck muscle 109325043 S16.1XXA Low back strain 31592488 1 S39.012A [id number] Jane Isaac MD , [facility], OFFICE [address] [place] [address] 6 08/13/2017 08:48:29 08/13/2017 09:40:14 Adult health examination 966253567 Z00.00 see Risk Assessment and Lifestyle Change Counseling section above Counseling 286615915 Z71 .9 Screening for malignant neoplasm of cervix 691518535 Z12.4 Fatigue 91269784 R53.83 Plantar fasciitis 603566 003 M72.2 [id number] Neil Mirza DPM Podiatry, [address] [address] 6 08/25/2017 08:41:48 08/26/2017 15:56:26 Plantar fasciitis 823472099 M72.2 Acquired c avus deformity of foot 02768330 M21.6X9 [id number] Jane Isaac MD , [facility], OFFICE [address] [place] [address] 6 08/23/2018 08:17:29 08/23/2018 09:06:38 Adult health examination 979281482 Z00.00 see Risk Assessment and Lifestyle Change Counseling section above Counseling 747521239 Z71 .9 Depression screening 171 949373 Z13.89 depression screening tool administer ed, entered into emr, scored and discussed, time greater than 7.5 minutes Mixed hyperlipidemia 267 232655 E78.2 Screening for malignant neoplasm of cervix 962361125 Z12.4 [id number] Tresa Jacobsen, [facility], [address] [address] 6 12/16/2018 10:02:26 12/16/2018 11:09:18 Regular astigmatism 62841733 H52.223 Ophthalmic examination and evaluation 27229578 Z01.00 ocular health wnl OU; monitor 1-2 yrs CEE or prn [id number] Jane Isaac MD , [facility], OFFICE [address] [place] [address] 6 08/30/2019 07:52:00 08/30/2019 08:57:01 Adult health examination 952023171 Z00.00 see Risk Assessment and Lifestyle Change Counseling section above Counseling 934428285 Z71 .9 Depression screening 171 947409 Z13.89 depression screening tool administer ed, entered into emr, scored and discussed, time greater than 7.5 minutes Mixed hyperlipidemia 267 998985 E78.2 Screening for malignant neoplasm of cervix 900584906 Z12.4 Pain of ri ght shoulder joint 6834300252 9699472 M25.466 [id number] Tresa Jacobsen, OD Eye Care, [facility] [address] [place] [address] 12/08/2019 09:45:59 12/08/2019 11:10:30 Regular astigmatism 95446621 H52.223 new glasses rx. Discussed DVO/NVO vs. PAL. Headache 07796901 R51 possibly due to 2' uncorrecte d astigmatis m. try glasses. f/u with PCP if persist. Blurring o f visual image 192331285 H53.8 2' change in glasses rx. [id number] Jane Isaac MD , [facility], OFFICE [address] [place] [address] 6 05/28/2020 16:36:37 05/29/2020 09:22:35 Dysfunction of eustachian tube 20136860 H69.91 Strain of trapezius muscle 658982768 S46.811A [id number] Jane Isaac MD , [facility], OFFICE [address] [place] [address]65[address] 6 08/31/2020 08:26:40 09/03/2020 09:10:02 Adult health examination 643269406 Z00.00 see Risk Assessment and Lifestyle Change Counseling section above Counseling 192330245 Z71 .9 including cardiovasc ular risk reduction counseling Depression screening 171 839449 Z13.89 depression screening tool administer ed, entered into emr, scored and discussed, time greater than 7.5 minutes Screening for alcohol abuse 807079006 Z13.39 [id number] Jane Isaac MD , [facility], OFFICE [address] [place] [address] 6 09/10/2020 08:57:03 09/12/2020 09:47:14 Screening for malignant neoplasm of cervix 886155783 Z12.4 Active or passive immunization 429326209 Z23 [id number] Berny Galarza MD , [facility], OFFICE [address] [place] [address]94[address] 6 11/20/2020 14:20:12 11/21/2020 16:58:23 COVID-19 882377668 U07.1 [id number] Ciciradha Morocho , [facility], OFFICE [address] [place] [address]681[address] 6 11/27/2020 13:45:01 11/29/2020 08:26:02 Dizziness 785257811 R42 May be more related to eustachian tube dysfunctio n, will try flonase. Pt to contact the office if no improvemen t or any worsening symptoms. [id number] Kym Ferrer MA , [facility], OFFICE [address] [place] [address] 6 09/02/2021 09:39:04 09/02/2021 10:37:30 Adult health examination 012878756 Z00.00 see Risk Assessment and Lifestyle Change Counseling section above Counseling 213351293 Z71 .9 including cardiovasc ular risk reduction counseling Depression screening 171 942571 Z13.31 depression screening tool administer ed, entered into emr, scored and discussed, time greater than 7.5 minutes Screening for alcohol abuse 154057985 Z13.39 Essential hypertension 36293184 I10 Mixed hyperlipidemia 267 533851 E78.2 Fatigue 14078645 R53.83 Screening for malignant neoplasm of colon 281707441 Z12.11 Contraception care 73545 5005 Z30.40 Impacted c erumen of bilateral ears 4413531331 694065 H61.23 [id number] Jane Isaac MD , [facility], OFFICE [address] [place] [address] 860[address] 6 12/19/2021 10:22:03 12/19/2021 11:12:12 Change in stool caliber 07613238 R19.5 Adult heal th examination 113870524 Z00.00 see Risk Assessment and Lifestyle Change Counseling section above [id number] Tresa Jacobsen, [facility], [address] [address] 12/26/2021 09:11:46 12/26/2021 10:12:27 Regular astigmatism 90931601 H52.223 new glasses rx. Discussed DVO/NVO vs. PAL. Ophthalmic examination and evaluation 43158448 Z01.00 ocular health wnl OU; monitor 1-2 yrs CEE or prn [id number] Jyotsna Del Cid RN [facility] [address] [place] [address] 03/27/2022 11:18:46 03/27/2022 13:13:43 [id number] Jane Isaac MD , [facility], OFFICE [address] [place] [address]97[address] 6 07/03/2022 11:41:01 07/09/2022 13:32:54 Active or passive immunization 219572770 Z23 will receive at work Multiple joint pain 3567 8005 M25.50 Fatigue 20330732 R53.83 [id number] Jane Isaac MD , [facility], OFFICE [address] [place] [address] 7[address]24-[address] 6 09/08/2022 09:31:54 09/08/2022 10:28:00 Adult health examination 110961862 Z00.00 see Risk Assessment and Lifestyle Change Counseling section above Counseling 525276877 Z71 .9 including cardiovasc ular risk reduction counseling Depression screening 171 522813 Z13.31 depression screening tool administer ed, entered into emr, scored and discussed, time greater than 7.5 minutes Screening for alcohol abuse 057478546 Z13.39 Mixed hyperlipidemia 267 938135 E78.2 Screening mammography 24 211123 Z12.31 Active or passive immunization 826046975 Z23 will receive at work// Pt got Flu vac vai work 09/08/22 as Discoloration of skin 32 53959 R23.8 Contraception care 29364 5005 Z30.40 [id number] Cici Morocho , [facility], OFFICE [address] [place] [address] 6 07/08/2023 08:56:35 07/08/2023 09:33:23 Acute otitis media 7500964 H66.91 On R. Recommend antibiotic s as below. COVID-19 069075255 U07.1 As below. [id number] Jenaro Delgado MD , [facility], OFFICE [address] [place] [address]27[address]207 6 07/13/2023 13:55:37 07/13/2023 14:12:41 Active or passive immunization 887889387 Z23 flu on hold until feeling better Serous otitis media 8032 7007 H65.91 - from ear infection, continue the course of antibiotic s, improving- discussed natural course after an ear infection, fluid in the middle ear can persist for up to three months- there is no consensus on anti-hista mines or decongesta nts as being helpful for this resolve faster, these may be of limited benefit- return to office if this persists for 3 months and we will refer to ENT- return to office with worsening symptoms or ear pain [id number] Jane Isaac MD , [facility], OFFICE [address] [place] [address]55-195 6 09/10/2023 08:23:48 09/10/2023 09:35:58 Adult health examination 355132452 Z00.00 see Risk Assessment and Lifestyle Change Counseling section above Depression screening 171 787091 Z13.31 depression screening tool administer ed Screening for alcohol abuse 969702094 Z13.39 Alcohol use screening tool administer ed Screening mammography 24 732308 Z12.31 Active or passive immunization 334760348 Z23 will receive at work// Pt got Flu vac vai work 09/08/22 as Pt completed flu at work 09/10/23 as Vertigo 292628490 R42 Hyperlipidemia 18667178 E78.5 Lesion of skin of nose 3479018388 1986326 J34.89 Contraception care 82386 5005 Z30.40 [id number] Jane Isaac MD , [facility], OFFICE [address] [place] [address] 6 10/19/2023 13:20:45 10/22/2023 08:58:10 Persistent cough 410763885 R05.3 [id number] Tresa Jacobsen, OD Eye Care, [address] [address] 02/08/2024 09:42:51 02/09/2024 12:40:38 Regular astigmatism 50977287 H52.223 new glasses rx. 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 pt ed. not visually significan t. Observe [id number] Jane Isaac MD , [facility], OFFICE [address] [place] [address] 09/13/2024 08:20:45 09/13/2024 14:08:55 Adult health examination 031599970 Z00.00 see Risk Assessment and Lifestyle Change Counseling section abovepap due in 2024, Depression screening 171 885057 Z13.31 depression screening tool administer ed Screening for alcohol abuse 083501163 Z13.39 Alcohol use screening tool administer ed Active or passive immunization 804546543 Z23 Flu: will receive at work// Pt got Flu vac vai work 09/08/22 as Pt completed flu at work 09/10/23 as Pneumonia: Shingles: advised to get at pharmacy Screening mammography 24 141077 Z12.31 normal 2023; prefers every 2 yrs at [facility], due 2025 Hyperlipidemia 59154486 E78.5 * Discussed cholestero l. Your HDL (good type) and triglyceri mariaa are at goal.* Your LDL (bad type of cholestero l) is NOT at goal - should be less than 130* Saturated fat is a bad kind of fat. For a heart healthy diet, 16 grams of saturated fat per day for women and 20 grams of saturated fat per day for men.* A Mediterran osmany type of diet and a plant based diet is recommende d, review the website: Oldwayspt. org. The DASH diet is also recommende d.* Review this website: https://ww wElixr/al l-about-go od-and-cyndy ap for healthy inexpensiv e meals. Contraception care 49198 0020 Z30.40 refills given no concerns Health Concerns Section Related Observation LastModified by Organization Detai ls LastModified Time None Recorded Concern Status LastModified by Organization Details LastModified Time None Recorded Advance Directives Directive None Recorded Payers Encounter Date Sequence Insurance Name Policy Number Policy Ramirez Covered Member ID Ramirez Member ID Guarantor Name 07/13/2023 1 [employer] [place] [id number] Smita Pham [id number] Smita Pham 09/10/2023 1 [employer] [place] [id number] Smita Pham [id number] Smita A Ankit 10/19/2023 1 [employer] OF [facility] (EPO) [id number] Smita A Ankit [id number] Smita A Ankit 02/08/2024 1 [employer] [facility] (EPO) [id number] Smita A Ankit [id number] Smita A Ankit 09/13/2024 1 [employer] [facility] (EPO) [id number] Smita A Ankit [id number] Smita A Ankit Notes Date Note Type Note Provider Name and Address Organization Details Recorded Time 07/13/2023 text/html 47 year old susan ent presents to follow up on otitis media.- was prescribed augmentin and has not had improvement in hearing- pain has improved- has twinges of pain- continues to cough - non productive, no chest pain or shortness of breath- has improved LAST VISIT: Pt comes in today c/o severe right ear feeling blocked and painful in the setting of COVID. Pt tested positive for COVID 07/06, started with symptoms 07/05. The ear became very painful yesterday; today is a little better but she had tylenol. Pt has a hx of ear infections - she had tubes when she was younger. She is also having a significant headache. She's been taking tylenol as well as two doses of mucinex to try to break things up. Jenaro Delgado MD [address] [place] [address], [phone], [facility] 07/13/2023 21:25:02 09/10/2023 text/html Comprehensive Ey e ExamReported bypatient.Quality:2 year exam;blurred vision near without glasses Context:currently wears glasses Modifying factors:wears glasses for distance only Associated Symptoms:no redness; no itching; no floaters; no drynessPhysical Exam/FemaleReported bypatient.PHAPatient is here for a Wellness Visit. She describes her health status as fair. Patient's health is worse than last year.Risk Assessment and Lifestyle Change Counseling 50-64Reported bypatient.Coronary Artery Disease Risk Assessment:No Family history of coronary artery disease; No personal history of diabetes; No history of peripheral vascular disease, AAA, or carotid disease; No personal history of coronary artery disease; Patient has low risk for coronary artery disease; [place] 10 year risk less than 5%; ASCVD 10 yr risk 0.8% Breast Cancer Risk Assessment:No family history of breast cancer; No history of breast cancer or dcis; Patient has low risk for breast cancer Colon Cancer Risk Assessment:No family history of colon polyps or cancer; No history of adenomatous colon polyps; Patient has low risk for colon cancer Lung Cancer Risk Assessment:Never smoked; No symptoms of Lung Cancer; No asbestos exposure; Patient has low risk for lung cancer Fracture Risk Assessment:No unexplained fracture; Patient has low risk for osteoporotic bone fractures Cognitive/Behavioral Risk Assessment:No personal history of mental illness; No family history of mental illness Safety Risk Assessment:No evidence of abuse/neglect; Do you feel safe in your current relationship?YES; Have you ever been a victim of physicial/emotional/s exual abuse?NO; Concerns for alcohol or drug abuse?NO Diet:Counseled about eating a diet low in trans and saturated fats and high in fiber, fruits and vegetables; Counseled about appropriate calcium intake and good dietary sources of calcium.; Counseled about the importance of maintaining a positive calcium balance and taking 1000 iu Vitamin D daily.; Discussed the value of a Mediterranean diet , and eating more fruits and vegetables Exercise counseling:Discussed the importance of daily physical activity; Discussed the importance of weight bearing exercise Safety:Counseled about protecting skin from the sun and lowering the risk of skin cancer Family Planning:Using control Control Pills sore nose same spot yearly every Febseveral years nowspontaneously resolves after a month Jane Isaac MD [address] [place] [address], [phone], [facility] 09/12/2023 10:13:56 10/19/2023 text/html cough x 3 weekscoughing fits and feels like it is stuck in hereno fever or chills, no SOB, neg COVID testno nasal congestioncough worse at night Jane Isaac MD [address] [place] [address], [phone], [facility] 10/20/2023 14:55:30 02/08/2024 text/html Comprehensive Ey e ExamReported bypatient.Quality:2 year exam;blurred vision near with glasses Context:currently wears glasses Modifying factors:wears glasses for distance only Associated Symptoms:no redness; no itching; no floaters; no dryness Difficult driving at night. Getting harder to see up close with glasses. She got PAL's last year, but hated them and went back to single vision. Tresa Jacobsen, OD [address] [place] [address], [place], [address], [facility] 02/08/2024 11:12:16 09/13/2024 text/html Physical Exam/FemaleReported bypatient.PHAPatient is here for a Wellness Visit. She describes her health status as fair. Patient's health is worse than last year.Risk Assessment AdultReported bypatient.Coronary Artery Disease Risk Assesment:No Family history of coronary artery disease; No personal history of diabetes; No history of peripheral vascular disease, AAA, or carotid disease; No personal history of coronary artery disease; Patient has low risk for coronary artery disease; [place] 10 year cardiac risk less than 5% Breast Cancer Risk Assessment:No family history of breast cancer; No history of breast cancer or dcis Colon Cancer Risk:No personal history of colon cancer or polyps;Family history of colon polyps or canncer(uncle , GF); Patient has medium risk for colon cancer Lung Cancer Risk Assessment:Never smoked; No symptoms of Lung Cancer; No asbestos exposure; Patient has low risk for lung cancer Fracture Risk Assessment:No unexplained fracture Cognitive/Behavioral Risk Assessment:No personal history of mental illness; No family history of mental illness Safety Risk Assessment:Do you feel safe in your current relationship?YES; Have you ever been a victim of physical/emotional/se xual abuse?NO Diet:Counseled about eating a diet low in trans and saturated fats and high in fiber, fruits and vegetables; Counseled about appropriate calcium intake and good dietary sources of calcium.; Counseled about the importance of maintaining a positive calcium balance and taking 1000 iu Vitamin D daily.; Counseled about decreasing salt in diet; Discussed the value of a Mediterranean diet, and eating more fruits and vegetables Family Planning:Using control Control Pills; Does not desire Exercise counseling:Discussed the importance of daily physical activity; Discussed the importance of weight bearing exercise Counselling:Counseled about protecting skin from the sun and lowering the risk of skin cancerRisk Assessment and Lifestyle Change Counseling 50-64Reported bypatient.Coronary Artery Disease Risk Assessment:No Family history of coronary artery disease; No personal history of diabetes; No history of peripheral vascular disease, AAA, or carotid disease; No personal history of coronary artery disease; Patient has low risk for coronary artery disease; [place] 10 year risk less than 5%; ASCVD 10 yr risk 0.8% Breast Cancer Risk Assessment:No family history of breast cancer; No history of breast cancer or dcis; Patient has low risk for breast cancer Colon Cancer Risk Assessment:No family history of colon polyps or cancer; No history of adenomatous colon polyps; Patient has low risk for colon cancer Lung Cancer Risk Assessment:Never smoked; No symptoms of Lung Cancer; No asbestos exposure; Patient has low risk for lung cancer Fracture Risk Assessment:No unexplained fracture; Patient has low risk for osteoporotic bone fractures Cognitive/Behavioral Risk Assessment:No personal history of mental illness; No family history of mental illness Safety Risk Assessment:No evidence of abuse/neglect; Do you feel safe in your current relationship?YES; Have you ever been a victim of physicial/emotional/s exual abuse?NO; Concerns for alcohol or drug abuse?NO Diet:Counseled about eating a diet low in trans and saturated fats and high in fiber, fruits and vegetables; Counseled about appropriate calcium intake and good dietary sources of calcium.; Counseled about the importance of maintaining a positive calcium balance and taking 1000 iu Vitamin D daily.; Discussed the value of a Mediterranean diet , and eating more fruits and vegetables Exercise counseling:Discussed the importance of daily physical activity; Discussed the importance of weight bearing exercise Safety:Counseled about protecting skin from the sun and lowering the risk of skin cancer Family Planning:Using control Control Pills menses spacing out nowbreast tenderness generalized once a month - decrease salt in diet during her time of periodsconstipation? normal colonoscopy - eat 1-2 prunes in the AM Jane Isaac MD [address] [place] [address], [phone], [facility] 09/14/2024 14:28:11 OBGyn Episode No OBEpisode recorded.
== END 2024-11-04 08:47 | disposition home or self-care (01) ==
LOC: HO.MAMMO 08:46
PROVIDERS: PCP Family Medicine; Visit Provider Family Medicine
DX: Z12.31 Encounter for screening mammogram for malignant neoplasm of breast (principal)
CPT/HCPCS: 77063; 77067

== ENCOUNTER → 2024-11-04 09:00 | Outpatient (BNV) | payer OTHER, SELFPAY | PROVIDERS: PCP Family Medicine; Visit Provider Internal Medicine | DX: Z12.31 Encounter for screening mammogram for malignant neoplasm of breast (principal) | CPT/HCPCS: 77063; 77067 ==

== ENCOUNTER 2025-02-10 08:52 | Outpatient (RCR) | payer OTHER, SELFPAY | END 2025-04-10 11:56 | disposition home or self-care (01) | LOC: HO.PT 08:52 | PROVIDERS: PCP Family Medicine; Visit Provider Family Medicine | DX: M75.51 Bursitis of right shoulder (principal) | CPT/HCPCS: 97014; 97035; 97110; 97112; 97140; 97161; 97530 ==

== ENCOUNTER 2025-02-13 15:25 | Outpatient (REF) | payer OTHER, SELFPAY ==
--- NOTE | ~2025-02-13 | XR_ITS ---
EXAMINATION: XR SHOULDER, RIGHT CLINICAL INFORMATION: right shoulder ap COMPARISON: None available. TECHNIQUE: AP external rotation, Grashey, scapular Y, and axillary views of the right shoulder. FINDINGS: Irregularity in the cortex of the right acromion. No acute cortical disruption or malalignment. Probable small bony island humeral head. No lytic or blastic lesions. XR/XR shoulder RT min 2V IMPRESSION: Mild degenerative changes right acromion. Electronically signed by: Rod Gonzales MD 02/14/2025 07:33 AM EDT
== END 2025-02-13 15:26 | disposition home or self-care (01) ==
LOC: HO.XRAY 15:25
PROVIDERS: PCP Family Medicine; Visit Provider Family Medicine
DX: M25.511 Pain in right shoulder (principal)
CPT/HCPCS: 73030

== ENCOUNTER → 2025-02-13 15:48 | Outpatient (BNV) | payer OTHER, SELFPAY | PROVIDERS: PCP Family Medicine; Visit Provider Radiology Diagnostic Radiology | DX: M25.511 Pain in right shoulder (principal) | CPT/HCPCS: 73030 ==

== ENCOUNTER 2025-08-01 14:37 | Outpatient (AMB) | payer OTHER, SELFPAY ==
--- NOTE | 2025-08-01 15:00 | MHC.OFFVIS ---
Vital Signs 08/01/25 15:03 Height 5 ft 6 in Weight 165 lb BMI 26.6 Handedness Right Intake Visit Reasons: Right shoulder pain and weakness Intake Note: Smita is a 49 year old right hand dominant female who presents with complaints of progressively worsening right shoulder pain and weakness. The patient describes her pain as sharp in nature. Most of the pain is along the superior and lateral aspects of her shoulder. She did injure her shoulder approximately 6 months ago. She has failed the last 6 weeks of conservative treatment which has included ibuprofen, Tylenol and physical therapy exercises. She reports increased pain when lifting her right hand above shoulder height. Allergies naproxen Allergy (Intermediate, Verified 08/01/25 15:03) nausea/vomiting Medication List - Last Reconciled 08/01/25 by Stanislaw Reddy MD acetaminophen 1,000 mg PO Q6H PRN cholecalciferol (vitamin D3) 25 mcg PO DAILY cyanocobalamin (vitamin B-12) 1,000 mcg PO DAILY ibuprofen 200 mg PO Q6H PRN meclizine 12.5 mg PO TID PRN multivitamin 1 tab PO DAILY norethindrone (contraceptive) (Incassia) 0.35 mg PO DAILY omeprazole 20 mg PO DAILY PRN PFSH Medical History Astigmatism GERD (gastroesophageal reflux disease) Headache Low back pain Mixed hyperlipidemia Surgical History No history of previous surgery Family History Mother Hepatitis C Father Hepatitis C Maternal Grandmother Cancer Paternal Grandmother Colon cancer Social History Household Members Other:: Mom Alcohol intake: current Patient Tobacco Use Status: Never used Tobacco Current occupational status: employed Current occupation: house keeper / right handed Physical Exam Vital Signs: BMI result Body Mass Index 26.6 Const Other: Well-nourished well-developed very friendly female awake alert and oriented x3 in no acute distress Extrem Other: Right shoulder examination shows slightly decreased range of motion when compared to her left shoulder, 4+ out of 5 strength with supraspinatus testing, positive impingement signs, tenderness over her acromioclavicular joint, no instability Results Reviewed Results Reviewed: X-rays of the patient's right shoulder show moderate to severe acromioclavicular joint narrowing, a type 2 acromion, no acute bony abnormalities Assessment & Plan Assessment & Plan (1) Rotator cuff insufficiency of right shoulder: Code(s): M25.311 - Other instability, right shoulder Category: Medical Plan Ms. Pham presents with right shoulder pain and weakness due to impingement syndrome and possible rotator cuff tearing. Thus, I will send the patient for an MRI of her right shoulder for further evaluation. I will see her back once the MRI is completed to discuss the findings and treatment options. Feel free to call me at any time should questions regarding her orthopedic management arise. I spent 20 minutes in reviewing the patient's records and imaging studies, seeing the patient and documenting in the medical record. Orders: Orders MR shoulder RT wo con 08/02/25 M25.311 - Other instability, right shoulder Coding Level of Care Code New Pt Level 3 (47948) Complex EM visit Add On G2211 Diagnoses Rotator cuff insufficiency of right shoulder M25.311
[2025-08-01 15:03] VITALS: BMI 26.6
--- OUTSIDE RECORDS SUMMARY | 2025-08-01 19:43 | XMS_ITS | Clinical Summary ---
Author Organization [facility] Address [address] [place] [id number] Phone Care Team Providers Care Director Medical Writing Name Role Phone Jane Moore MD Primary Care Prov ider Allergies Active Allergy Reactions Criticality Noted Date Comments Naproxen Nausea and/or Vomiting 09/21/2017 Medications therapeutic multivitamin tablet Take 1 tablet by mouth daily. Active Active Problems No known active problems Family History Medical History Relation Comments Cancer Maternal Grandmother Colon cancer Paternal Grandfather Pancreatic cancer Paternal Grandmother Relation Status Comments Father Alive Maternal Grandmother Mother Alive Paternal Grandfather Paternal Grandmother Social History Tobacco Use Types Packs/Day Years Used Date Smoking Tobacco: Never Smokeless Tobacco: Never Alcohol Use Standard Drinks/Week Comments Yes 0 (1 standard drink = 0.6 oz pur e alcohol) 1 drink per month Education Answer Date Recorded Are you interested in more education? Not on tim e 02/06/2023 Are you concerned about learning? Not on file 02/06/2023 No 02/06/2023 No 02/06/2023 Digital Access Answer Date Recorded No 03/09/2023 No 03/09/2023 No 03/09/2023 Reliable internet access at home? Not on file 03/09/2023 Device with a working camera? Not on file Comments No Sex and Gender Information Value Date Recorded Sex Assigned at Not on file Legal Sex Female 4:13 PM EST Gender Identity Not on file Sexual Orientation Not on file Occupation Industry Job Start Date Job End Date Working Not on file Not on file Not on file Last Filed Vital Signs Vital Sign Reading Time Taken Comments Blood Pressure 140/90 09/21/2017 9:22 AM EST Pulse - - Temperature - - Respiratory Rate - - Oxygen Saturation - - Inhaled Oxygen Concentration - - Weight 81.3 kg (179 lb 3.2 oz) 09/21/2017 9:22 A M EST Height 167.6 cm (5' 6 ) 09/21/2017 9:22 AM EST Body Mass Index 28.92 09/21/2017 9:22 AM EST Plan of Treatment Health Maintenance Due Date Last Done Comments LIPID PANEL 1973 DEPRESSION SCREENING 1985 HEPATITIS C SCREENING 1991 HIV ONE-TIME SCREENING (18-65 YEARS) 1991 MAMMOGRAM 2013 COLOGUARD 2018 COLONOSCOPY 2018 COLORECTAL CANCER SCREENING 2018 FIT TEST 2018 FOBT 2018 SIGMOIDOSCOPY 2018 VIRTUAL COLONOSCOPY 2018 PNEUMOCOCCAL VACCINES (50+ years) (1 of 1 - PCV) 2023 ZOSTER VACCINES (1 of 2) 2023 PAP SMEAR 09/10/2023 09/10/2020, 08/12, 08/23/2018, Additional history exists INFLUENZA VACCINE (#1) 2025 , 07/10/2020, 07/20/2019, Additional history exists COVID-19 VACCINE ( - 2024- season) 2025 12/03/2020, 11/05/2020, 11/05/2020 Adult Td,Tdap Booster 09/10/2030 09/10/2020 RSV VACCINE (1 - 1-dose 75+ series) 2048 SMOKING STATUS SCREENING (Once After 26 Yrs) Completed 12/06/2020 HEPATITIS A VACCINES Aged Out No long er eligible based on patient's age to complete this topic HIB VACCINES Aged Out No longer eligi ble based on patient's age to complete this topic MENINGOCOCCAL VACCINES (ACWY) Aged Out No longer eligible based on patient's age to complete this topic MENINGOCOCCAL VACCINES (B) Aged Out N o longer eligible based on patient's age to complete this topic Medical Devices Not on file Procedures Procedure Name Priority Date/Time Associated Diagnosis Comments PAP TEST Routine 09/10/2020 12:00 AM EST from Last 3 Months or Most Recently Relevant to Health Maintenance Results * Pap Smear (09/10/2020 12:00 AM EST) 09/10/2020 09/12/2020 8:1 7 AM EST Narrative SEE NARRATIVE - 09/13/2020 4:53 [place] [address] Client Service Supervisor: Sandra Pineda MD PANEL MACHINE OPERATOR Cytology Report FINAL DIAGNOSIS A. PAP SMEAR (SUREPATH) CE: SPECIMEN ADEQUACY: Satisfactory for evaluation; transformation zone present. INTERPRETATION: NEGATIVE FOR INTRAEPITHELIAL LESION OR MALIGNANCY. Electronically Signed Out By: CAMRYN Last(ASCP) The Pap test is a screening test primarily for squamous cancers and precursors and has associated false-negative and false-positive results. New technologies such as liquid-based preparations may decrease but will not eliminate all false-negative results. Regular sampling and follow-up of unexplained clinical signs and symptoms are recommended to minimize false negative results. PROCEDURES/ADDENDA HPV Testing (Requested) Ordered Date: 09/12/2020 A. PAP SMEAR (SUREPATH) CE: Human Papilloma Virus Test Negative for high-risk human papillomavirus types 16, 18, 45 and the Other high risk probe set (Includes 31, 33, 35, 39, 51, 52, 56, 58, 59, 66, 68) by Dasher Onclarity HR-HPV analysis. Clinical correlation is advised. This HPV test was performed at [facility], [address] [place] [address]. This test has been FDA approved for SurePath cervical cytology specimens. The accuracy and precision of this test for all other specimen sources has been verified in the Cytopathology Laboratory of the [facility] and has not been cleared or approved by the U.S. Food and Drug Administration. Clinical correlation is advised. CLINICAL HISTORY Date of Last Menstrual Period: Not Provided Menstrual History: Unknown Other Clinical Conditions: Screening Pap SPECIMEN SOURCE A: PAP SMEAR (SUREPATH) CE Patient Name: MULUGETA HEART : 1975 (Age: 45) Sex: F Institution: [facility] Location: [facility] Date of Collection: 09/10/2020 Date of Reported: 09/13/2020 13:10 Results to: Jane Moore Jane Moore MD CYTOLOGY ORDERABLE S Edited Result - Final SEE NARRATIVE from Last 3 Months or Most Recently Relevant to Health Maintenance Insurance [employer]MIN[employer]ATORS [employer]MIN[employer] Member Subscriber Plan / Payer ( fective 2019-Present) Name:Mulugeta Heart Relation to Subscriber:Self Name:Mulugeta Heart Payer ID:[id number] (NAIC) Type:PPO Address: [place] [id number] [facility] ADMINISTRATORS [facility] ADMINISTRATORS [facility] ADMINIST[employer]ATORS [facility] [place] [address] [address] [place] [address] [address] [place] [address] ADMINISTRATORS Member Subscriber Plan / Payer (Ef fective 2019-Present) Name:Mulugeta Heart Relation to Subscriber:Self Name:Muulgeta Heart Payer ID:[id number] (NAIC) Type:PPO Address: [place] [phone] [facility] BENEFITS ADMINISTRATORS Care Teams Director Medical Writing Relationship Specialty Start Date End Date Jane Moore MD PCP - General Family Medicine 09/21/17 Additional Source Comments The information contained in this document represents components of the legal health record. It is not the complete legal health record.[facility]
== END 2025-08-01 15:19 | disposition home or self-care (01) ==
LOC: HO.HOS 14:38
PROVIDERS: PCP Family Medicine; Visit Provider Orthopaedic Surgery
DX: M25.311 Other instability, right shoulder (principal)
CPT/HCPCS: 99203

== ENCOUNTER → 2025-08-21 17:31 | Outpatient (BNV) | payer OTHER, SELFPAY | PROVIDERS: PCP Family Medicine; Visit Provider Radiology Diagnostic Ultrasound | DX: M25.311 Other instability, right shoulder (principal); M75.31 Calcific tendinitis of right shoulder; M19.011 Primary osteoarthritis, right shoulder | CPT/HCPCS: 73221 ==

== ENCOUNTER 2025-08-21 17:32 | Outpatient (REF) | payer OTHER, SELFPAY ==
--- NOTE | ~2025-08-21 | MR_ITS ---
EXAMINATION: MR SHOULDER WITHOUT CONTRAST, RIGHT CLINICAL INFORMATION: Shoulder instability COMPARISON: X-ray 02/13/2025 TECHNIQUE: MRI of the shoulder without contrast was performed on a high-field scanner. FINDINGS: ROTATOR CUFF: Supraspinatus: Moderate tendinosis. Small 3 x 2 mm low-grade intrasubstance tear in the insertional fibers. Infraspinatus: Mild-moderate tendinosis. Teres minor: Intact. Subscapularis: Mild tendinosis No muscle atrophy or fatty infiltration. BICEPS: Intact CORACOACROMIAL ARCH: The undersurface of the acromion is mildly curved with no subacromial spur. Mild acromioclavicular arthritis. Mild subacromial subdeltoid bursitis. LABRUM/CAPSULE: No labral tear is seen. GLENOHUMERAL JOINT/MARROW: No fracture. No aggressive marrow replacing lesion. No significant effusion. No axillary lymphadenopathy. MR/MR shoulder RT wo con IMPRESSION: 1. Moderate supraspinatus tendinosis. Small 3 x 2 mm low-grade intrasubstance tear in the insertional fibers. 2. Mild infraspinatus and subscapularis tendinosis. 3. Mild acromioclavicular arthritis. Mild subacromial subdeltoid bursitis. Electronically signed by: Remigio Nelson MD 08/22/2025 12:46 PM [place]
--- OUTSIDE RECORDS SUMMARY | 2025-08-21 18:06 | XMS_ITS | Clinical Summary ---
Author Organization [facility] Address [address] [place] [phone] Phone Care Team Providers Care Scrap Preparer Name Role Phone Jane Moore MD Primary [...] on patient's age to complete this topic IPV VACCINES Aged Out No longer eligi ble [...] SEE NARRATIVE - 09/13/2020 4:53 PM EST [address] [address] Errand Runner: Sandra Pineda MD BASKET WEAVER Cytology Report FINAL DIAGNOSIS A. PAP SMEAR [...] 52, 56, 58, 59, 66, 68) by [employer] Onclarity HR-HPV analysis. Clinical correlation is advised. This HPV test was performed at [facility], [address] [place] [address]. This test has been FDA approved for SurePath cervical cytology specimens. The accuracy and precision of this test for all other specimen sources has been verified in the Cytopathology Laboratory of the [facility] and has not been cleared or approved by the U.S. Food and Drug Administration. Clinical correlation is advised. CLINICAL HISTORY Date of Last Menstrual Period: Not Provided Menstrual History: Unknown Other Clinical Conditions: Screening Pap SPECIMEN SOURCE A: PAP SMEAR (SUREPATH) CE Patient Name: MULUGETA HEART : 1975 (Age: 45) Sex: F Institution: [facility] Location: [facility] Date of Collection: 09/10/2020 Date of Reported: 09/13/2020 13:10 Results to: Jane Moore Jane Moore MD CYTOLOGY ORDERABLE S Edited Result - Final SEE NARRATIVE from Last 3 Months or Most Recently Relevant to Health Maintenance Insurance [employer] ADMINISTRATORS Member Subscriber Plan / Payer (Ef fective 2019-Present) Name:Ankit Mulugeta A. Relation to Subscriber:Self Name:AnkitMulugeta Payer ID:[id number] (NAIC) Type:PPO Address: [place] [phone] [employer] [address] [place] [address] ADMINISTRATORS Member Subscriber Plan / Payer ( fective 2019-Present) Name:Mulugeta Heart Relation to Subscriber:Self Name:AnkitMulugeta Payer ID:[id number] (NAIC) Type:PPO Address: [address] [place] [address] ADMINISTRATORS Member Subscriber Plan / Payer ( fective 2019-Present) Name:Mulugeta Heart Relation to Subscriber:Self Name:Mulugeta Heart Payer ID:[id number] (NAIC) Type:PPO Address: [place] [phone] [place] [address] [employer] [place] [place] [address] [employer] Member Subscriber Plan / Payer (Ef fective 2019-Present) Name:Mulugeta Heart Relation to Subscriber:Self Name:Mulugeta Heart Payer ID:[id number] (NAIC) Type:PPO Address: [address] [place] [address] [employer] ADMINISTRATORS [facility] BENEFITS ADMINISTRATORS Care Teams Scrap Preparer Relationship Specialty Start Date End Date Jane Moore MD [email or web address] PCP - General Family Medicine 09/21/17 Additional Source Comments The information contained in this document represents components of the legal health record. It is not the complete legal health record.[facility]
== END 2025-08-21 17:33 | disposition home or self-care (01) ==
LOC: HO.MRI 17:32
PROVIDERS: PCP Family Medicine; Visit Provider Orthopaedic Surgery
DX: M25.311 Other instability, right shoulder (principal)
CPT/HCPCS: 73221

== ENCOUNTER 2025-09-14 14:37 | Outpatient (AMB) | payer OTHER, SELFPAY ==
--- NOTE | 2025-09-14 14:39 | MHC.OFFVIS ---
Vital Signs 09/14/25 14:40 Height 5 ft 6 in Weight 165 lb BMI 26.6 Intake Visit Reasons: OV-MRI Shoulder RT review Intake Note: Smita 50 yr old female who presents with right shoulder pain and stiffness. The patient describes her pain as sharp in nature. Her symptoms have gotten worse over the last 6 months in spite of continued non operative treatments. She has tried Tylenol and anti-inflammatory medicines which gave her minimal relief. She has also done physical therapy exercises which aggravated her pain. She reports difficulty lifting her right hand above shoulder height. At this point her right shoulder pain and stiffness or interfering with her activities of daily living and her ability to sleep well through the night. Allergies naproxen Allergy (Intermediate, Verified 09/14/25 14:43) nausea/vomiting Medication List - Last Reconciled 09/15/25 by Stanislaw Reddy MD acetaminophen 1,000 mg PO Q6H PRN cholecalciferol (vitamin D3) 25 mcg PO DAILY cyanocobalamin (vitamin B-12) 1,000 mcg PO DAILY ibuprofen 200 mg PO Q6H PRN meclizine 12.5 mg PO TID PRN multivitamin 1 tab PO DAILY norethindrone (contraceptive) (Incassia) 0.35 mg PO DAILY omeprazole 20 mg PO DAILY PRN PFSH Medical History Headache Astigmatism GERD (gastroesophageal reflux disease) Low back pain Mixed hyperlipidemia Surgical History No history of previous surgery Family History Mother Hepatitis C Father Hepatitis C Maternal Grandmother Cancer Paternal Grandmother Colon cancer Social History Household Members Other:: Mom Alcohol intake: current Patient Tobacco Use Status: Never used Tobacco Current occupational status: employed Current occupation: house keeper / right handed Physical Exam Vital Signs: BMI result Body Mass Index 26.6 Const Other: Well-nourished well-developed very friendly female awake alert and oriented x3 in no acute distress Extrem Other: Right shoulder examination shows decreased range of motion when compared to her left shoulder, 4+ out of 5 strength with supraspinatus testing, positive impingement signs, tenderness over her acromioclavicular joint, no instability Results Reviewed Results Reviewed: MRI of the patient's right shoulder show severe acromioclavicular joint narrowing, a type 2 acromion, signal change within the supraspinatus tendon most likely due to adhesive capsulitis Assessment & Plan Assessment & Plan (1) Impingement of right shoulder: Code(s): M25.811 - Other specified joint disorders, right shoulder Category: Medical Plan Ms. Pham presents with right shoulder pain and stiffness due to impingement syndrome, acromioclavicular joint arthritis and adhesive capsulitis. I had a lengthy discussion with the patient regarding the treatment options. At this point she has failed continued non operative treatments. The risks and benefits of right shoulder surgery were discussed at length with the patient. The patient wishes to proceed with surgery. Surgery will involve right shoulder arthroscopic distal clavicle excision, right shoulder arthroscopic acromioplasty, right shoulder arthroscopic capsular release and right shoulder manipulation under anesthesia. She will contact my office to pick a surgery date. She will follow up as instructed. Feel free to call me at any time should questions regarding her orthopedic management arise. I spent 20 minutes in reviewing the patient's records and imaging studies, seeing the patient and documenting in the medical record. Coding Level of Care Code Est Pt Level 3 (40516) Complex visit Add On G2211 Diagnoses Impingement of right shoulder M25.811
[2025-09-14 14:40] VITALS: BMI 26.6
--- OUTSIDE RECORDS SUMMARY | 2025-09-14 20:47 | XMS_ITS | Clinical Summary ---
Author Organization [facility] Address [address] [place] [phone] Phone Care Team Providers Care Electronic Warfare Linguist Name Role Phone Jane Moore MD Primary [...] (18-65 YEARS) 1991 MAMMOGRAM 2013 COLOGUARD 2018 FIT TEST 2018 FOBT 2018 SIGMOIDOSCOPY 2018 VIRTUAL COLONOSCOPY 2018 PNEUMOCOCCAL VACCINES (50+ years) (1 of 1 - PCV) 2023 ZOSTER VACCINES (1 of 2) 2023 PAP SMEAR 09/10/2023 09/10/2020, 08/12, 08/23/2018, Additional history exists INFLUENZA VACCINE (#1) 2025 , 07/10/2020, 07/20/2019, Additional history exists COVID-19 VACCINE ( - 2024- season) 2025 12/03/2020, 11/05/2020, 11/05/2020 Adult Td,Tdap Booster 09/10/2030 09/10/2020 COLONOSCOPY 03/27/2032 03/27/2022 COLORECTAL CANCER SCREENING 03/27/2032 RSV VACCINE (1 - 1-dose 75+ series) [...] Procedure Name Priority Date/Time Associated Diagnosis Comments HM COLONOSCOPY FOR RESULT ENTRY ONLY Routine 03/27/2022 PAP TEST Routine 09/10/2020 12:00 AM EST from Last 3 Months or Most Recently Relevant to Health Maintenance Results * COLONOSCOPY FOR RESULT ENTRY ONLY (03/27/2022) Colonoscopy External us Historical Provider HEALTH MAINTENANCE Final Result * Pap Smear (09/10/2020 12:00 AM EST) 09/10/2020 09/12/2020 8:1 7 AM EST Narrative SEE NARRATIVE - 09/13/2020 4:53 PM EST [address] [address] Tobacco Cutter: Sandra Pineda MD TELE TECH Cytology Report FINAL DIAGNOSIS A. PAP SMEAR [...] 52, 56, 58, 59, 66, 68) by [employer] HR-HPV analysis. Clinical correlation is advised. This HPV test was performed at [facility], [address] [place] [address]. This test has been FDA approved for [facility] cervical cytology specimens. The accuracy and precision of this test for all other specimen sources has been verified in the Cytopathology Laboratory of the [facility] and has not been cleared or approved by the U.S. Food and Drug Administration. Clinical correlation is advised. CLINICAL HISTORY Date of Last Menstrual Period: Not Provided Menstrual History: Unknown Other Clinical Conditions: Screening Pap SPECIMEN SOURCE A: PAP SMEAR (SUREPATH) CE Patient Name: MULUGETA HEART : 1975 (Age: 45) Sex: F Institution: [facility] Location: [facility] Date of Collection: 09/10/2020 Date of Reported: 09/13/2020 13:10 Results to: Jane Moore us Jane Moore MD CYTOLOGY ORDERABLE S Edited Result - Final SEE NARRATIVE from Last 3 Months or Most Recently Relevant to Health Maintenance Insurance ([place]) [id number] [place] [employer] [place] [address] [employer] [facility] [employer] Member Subscriber Plan / Payer (Ef fective 2019-Present) Name:Mulugeta Heart Relation to Subscriber:Self Name:Mulugeta Heart Payer ID:[id number] (NAIC) Type:PPO Address: [place] [phone] [place] [address] [employer] [address] [address] [employer] [place] [employer] Member Subscriber Plan / Payer (Ef fective 2019-Present) Name:Mulugeta Heart Relation to Subscriber:Self Name:Mulugeta Heart Payer ID:[id number] ([facility]) Type:PPO Address: [place] [phone] [facility] [employer] [facility] [employer] Care Teams Electronic Warfare Linguist Relationship Specialty Start Date End Date Jane Moore MD [email or web address] PCP - General Family Medicine 09/21/17 Additional Source Comments The information contained in this document represents components of the legal health record. It is not the complete legal health record.[facility]
== END 2025-09-14 15:07 | disposition home or self-care (01) ==
LOC: HO.HOS 14:38
PROVIDERS: PCP Family Medicine; Visit Provider Orthopaedic Surgery
DX: M25.811 Other specified joint disorders, right shoulder (principal)
CPT/HCPCS: 99213